=== PATIENT | female | born 1955 | race Caucasian/White ===

== ENCOUNTER 2017-04-08 05:23 | Emergency (ER) | payer OTHER ==
[2017-04-08 05:53] VITALS: BP 145/90; PULSE 81; TEMP 98.4
--- NOTE | 2017-04-08 06:49 | PDOC ---
History of Present Illness <Lizzy Holder - Last Filed: 04/08/17 06:41> - General History Source: Patient Exam Limitations: No Limitations - History of Present Illness Initial Comments: 04/08/17 07:07 Patient is a 62 year old female who presents to the ED with complaints of bilateral rib pain that began 3 days ago. Patient reports experiencing sudden onset of bilateral rib pain while at home that has shown no signs of subsiding. She reports experiencing increased nasal congestion as well as SOB for 3 days. Patient states she has recently been unable to sleep comfortably secondary to nasal congestion. Patient reports being afraid to take nasal medicine, stating that it makes her feel worse. She reports getting her flu shot 2 months ago. Denies chest pain, coughing. Denies runny nose, headache. Denies fevers, chills. Denies contact with significant past medical history. Remainder of ROS reviewed and unremarkable. PMHx: HTN Allergies: Shellfish Social history: No smoking. No alcohol. No illicit drugs. Surgical history: None PMD: Not on staff. <Kyle Long - Last Filed: 04/08/17 07:08> - General Chief Complaint: Cold Symptoms Stated Complaint: COUGHING,CONGESTION Time Seen by Provider: 04/08/17 06:09 Past History - Suicide/Smoking/Psychosocial Hx Smoking History: Never smoked Have you smoked in the past 12 months: No Information on smoking cessation initiated: No Hx Alcohol Use: No Drug/Substance Use Hx: No <Lizzy Holder - Last Filed: 04/08/17 06:41> <Kyle Long - Last Filed: 04/08/17 07:08> - Past Medical History Allergies/Adverse Reactions: Allergies Allergy/AdvReac Type Severity Reaction Status Date / Time shellfish derived Allergy Verified 04/08/17 05:49 Home Medications: Ambulatory Orders Amlodipine Besylate/Benazepril [Lotrel 5-10 mg Capsule] 1 each PO DAILY Desloratadine 5 mg PO DAILY 04/08/17 Fluticasone Prop 0.05% Nasal [Flonase -] 1 - 2 spray NS BID #1 spray.pump Oxymetazoline 0.05% Nasal Soln [Afrin -] 2 spray NS BID 3 Days #1 spraybtl 04/08 Pseudoephedrine HCl [Sudafed 12 Hour] 120 mg PO BID 5 Days #10 tablet.er Sodium Chloride [Saline Nasal [place]] 30 ml NS 5XD #1 spray 04/08/17 Zolpidem Tartrate [Ambien] 10 mg PO HS PRN 04/08/17 Review of Systems - Review of Systems Able to Perform ROS?: Yes Comments:: 04/08/17 07:07 See HPI. All other systems reviewed and unremarkable <Kyle Long - Last Filed: 04/08/17 07:08> *Physical Exam - Vital Signs Last Vital Signs Temp Pulse Resp BP Pulse Ox 98.4 F 81 18 145/90 96 04/08/17 05:47 04/08/17 05:47 04/08/17 05:47 04/08/17 05:47 04/08/17 05:47 - Physical Exam Comments: 04/08/17 06:41 NAD + congestion + cervical LAD no OP edema/erythema full voice CTABL RRR soft NTND very anxious.l <Lizzy Holder - Last Filed: 04/08/17 06:41> - Vital Signs Last Vital Signs Temp Pulse Resp BP Pulse Ox 98.4 F 81 18 145/90 96 04/08/17 05:47 04/08/17 05:47 04/08/17 05:47 04/08/17 05:47 04/08/17 05:47 <Kyle Long - Last Filed: 04/08/17 07:08> Medical Decision Making - Medical Decision Making 04/08/17 06:42 62yoF w/ sinus congestion x 3d, states interfering with sleep. Minimal therapy - - tried mucinex nasal spray without relief. - afrin, nasonex, nasal saline and sudafed - DC <Lizzy Holder - Last Filed: 04/08/17 06:41> *DC/Admit/Observation/Transfer - Discharge Dispostion Admit: No <Lizzy Holder - Last Filed: 04/08/17 06:41> - Attestations Scribe Attestion: 04/08/17 07:08 Documentation prepared by Kyle Long, acting as medical office asst for Lizzy Holder MD, /DO. <MercedesKyle gomez - Last Filed: 04/08/17 07:08> Diagnosis at time of Disposition: Sinus congestion, Upper respiratory infection - Discharge Dispostion Disposition: HOME Condition at time of disposition: Good - Prescriptions Prescriptions: Fluticasone Prop 0.05% Nasal [Flonase -] 1 - 2 spray NS BID #1 spray.pump Oxymetazoline 0.05% Nasal Soln [Afrin -] 2 spray NS BID 3 Days #1 spraybtl Pseudoephedrine HCl [Sudafed 12 Hour] 120 mg PO BID 5 Days #10 tablet.er Sodium Chloride [Saline Nasal [place]] 30 ml NS 5XD #1 spray - Referrals Referrals: ON STAFF,NOT [Primary Care Provider] - - Patient Instructions Additional Instructions: medications have been sent to your pharmacy. Take as directed. You should start to feel better in a few days but will likely not feel complete better for 1-2 weeks. Please see your primary doctor this week to discuss your symptoms. Take tylenol or advil for pain Take tylenol for fever over 100.4F return to ER for severe increasing pain with change in vision fever over 102 severe difficulty breathing in your lungs. - Post Discharge Activity
[2017-04-08] MEDS ORDERED: PSEUDOEPHEDRINE HCL 60 MG TABLET PO SCH (07:00)
[2017-04-08] MEDS ORDERED: PSEUDOEPHEDRINE HCL 60 MG TABLET ONE (07:04)
== END 2017-04-08 07:15 | disposition home or self-care (01) ==
LOC: JER 05:23
DX: J06.9 Acute upper respiratory infection, unspecified (principal)
CPT/HCPCS: 99281-25

== ENCOUNTER 2017-08-09 19:08 | Emergency (ER) | payer OTHER ==
[2017-08-09 19:31] VITALS: BP 173/96; PULSE 96; TEMP 98.2; BMI 19.0
[2017-08-09] MEDS ORDERED: EPINEPHrine 1:1,000 0.3 MG/0.3 ML SYR IM ONE (22:38)
[2017-08-09] MEDS ORDERED: FAMOTIDINE 20 MG/50 ML IVPB 20 MG/50 ML MG IVPB ONE ×2 (22:38→23:10)
[2017-08-09] MEDS ORDERED: methylPREDNISolone NA SUCC 125 MG/2 ML VIAL IVPUSH ONE (22:38)
--- NOTE | 2017-08-09 22:40 | PDOC ---
Attending Attestation - Resident Resident Name: KiloBasilioTrevor - ED Attending Attestation I have performed the following: I have examined & evaluated the patient, The case was reviewed & discussed with the resident, I agree w/resident's findings & plan, Exceptions are as noted - HPI HPI: 08/09/17 23:02 Ms Herrera is a 62 yo F with a h/o HTN She presents to the ER with a complaint of urticarial rash involving the extremities Symptoms have been present for the past 3 days she first noted it on the left ear, followed by the right ear Last night she noted a rash on the lower extremities She has been taking anti histamine, first dose she threw up this morning, she has noted minimal improvement in her symptoms She came in today because she felt throat tightness, globus sensation in the throat No wheezing Pt has an allergy to Shellfish and contrast No other food or medication allergies - Physicial Exam PE: 08/09/17 23:09 GENERAL: The patient is in no acute distress. EYES: PERRLA, EOMI, sclera anicteric, conjunctiva clear. ENT: Tongue not edematous, uvula midline, not edematous NECK: Normal range of motion, supple without lymphadenopathy, JVD, or masses. LUNGS: Breath sounds equal, clear to auscultation bilaterally. No wheezes, and no crackles. HEART:Regular rate and rhythm, normal S1 and S2 without murmur, rub or gallop. ABDOMEN: Soft, nontender, normoactive bowel sounds. No guarding, no rebound. No masses palpable. EXTREMITIES: Normal range of motion, no edema NEUROLOGICAL: Cranial nerves II through XII grossly intact. Normal speech. No focal neurological deficits. MUSCULOSKELETAL: Back non-tender to palpation, no CVA tenderness SKIN: Diffuse urticarial lesions noted - Medical Decision Making 08/10/17 00:04 62 yo F presenting to the ER with urticarial rash Unclear cause of rash Will give Solumedrol Will monitor for improvement in throat symptoms Pt monitored for 6 hours No progression or worsening of symptoms Pt asked to follow up with ENT and PMD Clinical Impression: urticarial rash, initial presentation Allergic reaction to unknown substance, initial presentation
--- NOTE | 2017-08-09 23:00 | PDOC ---
History of Present Illness - History of Present Illness Initial Comments: 08/09/17 22:48 62 yo F with no significant pmh who p/w urticarial rash, and globus throat sensation. Pt. reports 3 days of diffuse widespread urticarial, pruitic rash over trunk, BL LE and BL UE, sparing the palms and soles, but involving BL lateral face. Reports acute onset of globus throat sensation, hoarseness, dry non productive cough, and odynophagia. 1 episode of non bilious 50 mg diphehydramine, and Desloratidine with little to no improvement. Endorses new body soap use obtained from [facility]. Denies new topical emollients, shampoo, detergent, clothing, bedding, recent travel, outdoor exposure, hiking, camping. Reports similar symptom of urticarial reaction 2 months ago. Denies F/C, orthopnea, palpitations, tongue swelling, N/V, CP, SOB, abdominal pain, diarrhea, constipation, urinary complaints, weakness, lightheadedness, sensory changes. PMHx: as noted above ROS: as noted above. Denies h/o asthma, ICU stay, intubations. SHx:Denies Etoh, tobacco, IVDA Allergies: Shrimp <Trevor Boateng - Last Filed: 08/10/17 00:28> <Hosea Gilman - Last Filed: 08/10/17 04:18> - General Chief Complaint: Rash Stated Complaint: RASH Time Seen by Provider: 08/09/17 22:20 Past History - Past Medical History COPD: No - Suicide/Smoking/Psychosocial Hx Smoking History: Never smoked Have you smoked in the past 12 months: No Hx Alcohol Use: No Drug/Substance Use Hx: No <Trevor Boateng - Last Filed: 08/10/17 00:28> <Hosea Gilman - Last Filed: 08/10/17 04:18> - Past Medical History Allergies/Adverse Reactions: Allergies Allergy/AdvReac Type Severity Reaction Status Date / Time shellfish derived Allergy Verified 08/09/17 19:32 Home Medications: Ambulatory Orders Amlodipine Besylate/Benazepril [Lotrel 5-10 mg Capsule] 1 each PO DAILY Desloratadine 5 mg PO DAILY 04/08/17 Fluticasone Prop 0.05% Nasal [Flonase -] 1 - 2 spray NS BID #1 spray.pump Oxymetazoline 0.05% Nasal Soln [Afrin -] 2 spray NS BID 3 Days #1 spraybtl 04/08 Pseudoephedrine HCl [Sudafed 12 Hour] 120 mg PO BID 5 Days #10 tablet.er Sodium Chloride [Saline Nasal [place]] 30 ml NS 5XD #1 spray 04/08/17 Zolpidem Tartrate [Ambien] 10 mg PO HS PRN 04/08/17 Prednisone [Prednisone 50 MG TABLETS] 50 mg PO DAILY 5 Days #5 tablet MDD 1 tab 08/10/17 Review of Systems - Review of Systems Comments:: 08/09/17 23:03 GENERAL/CONSTITUTIONAL: No fever or chills. No weakness. HEAD, EYES, EARS, NOSE AND THROAT:+ throat discomfort. No change in vision. No ear pain or discharge. CARDIOVASCULAR: No chest pain or shortness of breath RESPIRATORY: No cough, wheezing, or hemoptysis. GASTROINTESTINAL: No nausea, vomiting, diarrhea or constipation. GENITOURINARY: No dysuria, frequency, or change in urination. MUSCULOSKELETAL: No joint or muscle swelling or pain. No neck or back pain. SKIN: + rash NEUROLOGIC: No headache, vertigo, loss of consciousness, or change in strength/ sensation. ENDOCRINE: No increased thirst. No abnormal weight change HEMATOLOGIC/LYMPHATIC: No anemia, easy bleeding, or history of blood clots. ALLERGIC/IMMUNOLOGIC: + hives or skin allergy. <Trevor Boateng - Last Filed: 08/10/17 00:28> *Physical Exam - Vital Signs Last Vital Signs Temp Pulse Resp BP Pulse Ox 98.2 F 96 H 18 173/96 99 08/09/17 19:28 08/09/17 19:28 08/09/17 19:28 08/09/17 19:28 08/09/17 19:28 - Physical Exam Comments: 08/09/17 23:04 GENERAL: Awake, alert, and fully oriented, in no acute distress HEAD: No signs of trauma, normocephalic, atraumatic EYES: PERRLA, EOMI, sclera anicteric, conjunctiva clear ENT: Hearing grossly normal, nares patent, oropharynx clear without exudates. Moist mucosa NECK: Normal ROM, supple, no lymphadenopathy, JVD, or masses LUNGS: No distress, speaks full sentences, clear to auscultation bilaterally HEART: Regular rate and rhythm, normal S1 and S2, no murmurs, rubs or gallops, peripheral pulses normal and equal bilaterally. ABDOMEN: Soft, nontender, normoactive bowel sounds. No guarding, no rebound. No masses EXTREMITIES : Normal inspection, Normal range of motion, no edema. No clubbing or cyanosis. SKIN: + Widespread urticarial, erythematous, blanching, skin change on BL LE/UE , abdomen and minimal facial involvement. Absent eye, mucosal, involvement. <Trevor Boateng - Last Filed: 08/10/17 00:28> - Vital Signs Last Vital Signs Temp Pulse Resp BP Pulse Ox 98.2 F 96 H 18 173/96 99 08/09/17 19:28 08/09/17 19:28 08/09/17 19:28 08/09/17 19:28 08/09/17 19:28 <Hosea Gilman - Last Filed: 08/10/17 04:18> ED Treatment Course - LABORATORY CBC & Chemistry Diagram: 08/09/17 23:59 08/09/17 23:59 <Trevor Boateng - Last Filed: 08/10/17 00:28> - LABORATORY CBC & Chemistry Diagram: 08/09/17 23:59 08/09/17 23:59 - ADDITIONAL ORDERS Additional order review: Laboratory Results 08/09/17 08/09/17 08/09/17 23:59 23:59 23:59 PT with INR 11.20 INR 0.99 Sodium 140 Potassium 3.7 Chloride 105 Carbon Dioxide 22 Anion Gap 13 BUN 18 Creatinine 0.9 Creat Clearance w eGFR > 60 Random Glucose 108 H Calcium 8.5 Total Bilirubin 0.4 AST 27 ALT 32 Alkaline Phosphatase 87 Creatine Kinase 148 Cancelled Troponin I < 0.02 Cancelled Total Protein 7.6 Albumin 3.8 08/09/17 23:59 RBC 4.01 MCV 95.4 MCHC 33.6 RDW 13.0 MPV 7.5 Neutrophils % 57.3 Lymphocytes % 31.5 Monocytes % 9.9 Eosinophils % 1.1 Basophils % 0.2 - Medications Given in the ED: ED Medications Discontinued Medications Generic Name Dose Route Start Last Admin Trade Name Freq PRN Reason Stop Dose Admin Diphenhydramine HCl 25 mg 08/09/17 22:38 08/09/17 23:44 Benadryl Injection - IVPUSH 08/09/17 22:39 25 mg ONCE ONE Administration Epinephrine 0.3 mg 08/09/17 22:38 08/09/17 23:44 Epipen 0.3mg - IM 08/09/17 22:39 Not Given ONCE ONE Famotidine/Sodium Chloride 20 mg in 50 mls @ 100 mls/hr 08/09/17 22:38 23:44 Pepcid 20 Mg Premixed Ivpb - IVPB 08/09/17 23:07 100 mls/hr ONCE ONE Administration Methylprednisolone Sodium Succinate 125 mg 08/09/17 22:38 08/09/17 23:45 Solu-Medrol - IVPUSH 08/09/17 22:39 125 mg ONCE ONE Administration <Hosea Gilman - Last Filed: 08/10/17 04:18> Medical Decision Making - Medical Decision Making 08/09/17 23:12 62 yo F with no significant pmh who p/w urticarial rash, and globus throat sensation. AF, BP 173/76, vitals otherwise wnl, A&Ox3. No evidence of stridor, tongue, mucosal, soft palate edema, uvular deviation, airway edema, hypotension or other signs of anaphylaxis. Probable acute atopic dermatitis, or acute hypersensitivity reaction. Patient stable with no evidence or respiratory compromise. Will treat and reassess. Plan to observe for 6 hours ED Course: Diphenhydramine 50 mg, Solumedrol 125 mg, Famotidine 20 mg CBC, CMP, Cardiac Pr, PT/INR 08/10/17 00:28 Prednisone sent to pharmacy CBC- Unremarkable Patient vitals stable and with absent resp distress. Signed out to night team. <Trevor Boateng - Last Filed: 08/10/17 00:28> *DC/Admit/Observation/Transfer - Attestations Physician Attestion: 08/09/17 23:27 I attest to the information provided in this note. <Trevor Boateng - Last Filed: 08/10/17 00:28> - Discharge Dispostion Decision to Admit order: No <Hosea Gilman - Last Filed: 08/10/17 04:18> Diagnosis at time of Disposition: Allergic reaction, urticaria - Discharge Dispostion Disposition: HOME Condition at time of disposition: Stable - Prescriptions Prescriptions: Prednisone [Prednisone 50 MG TABLETS] 50 mg PO DAILY 5 Days #5 tablet MDD 1 tab - Patient Instructions Printed Discharge Instructions: DI for Hives Additional Instructions: Please return to the emergency department with any new or worsening symptoms or concerns. Please follow up with your primary care physician within 72 hours. Please follow up with [facility] within one week. Take Prednisone daily.
[2017-08-09] MEDS ORDERED: methylPREDNISolone NA SUCC 125 MG/2 ML VIAL ONE (23:10)
[2017-08-10 00:09] LABS: BASO % 0.2 % (0-2.0); EOS % 1.1 % (0-4.5); HEMATOCRIT 38.2 % (32.4-45.2); HEMOGLOBIN 12.9 GM/dL (10.7-15.3); LYMPH % 31.5 % (8-40); MCH 32.1 pg (25.7-33.7); MCHC 33.6 g/dl (32.0-36.0); MEAN CELL VOLUME 95.4 fl (80-96); MEAN PLT VOLUME 7.5 fl (7.5-11.1); MONO % 9.9 % (3.8-10.2); NEUT % 57.3 % (42.8-82.8); PLATELET COUNT 235 K/MM3 (134-434); RBC 4.01 M/mm3 (3.60-5.2); WHITE BLOOD COUNT 5.6 K/mm3 (4.0-10.0)
[2017-08-10 00:30] LABS: INR 0.99 (0.82-1.09); PROTHROMBIN TIME (PATIENT) 11.2 SEC (9.7-13.0)
[2017-08-10 00:43] LABS: ALBUMIN 3.8 g/dl (3.4-5.0); ANION GAP 13 (8-16); BILIRUBIN,TOTAL 0.4 mg/dL (0.2-1.0); BLOOD UREA NITROGEN 18 mg/dL (7-18); CALCIUM 8.5 mg/dL (8.5-10.1); CHLORIDE 105 mmol/L (98-107); CO2 22 mmol/L (21-32); CREATININE 0.9 mg/dL (0.55-1.02); GLUCOSE,RANDOM 108 mg/dL (74-106); POTASSIUM 3.7 mmol/L (3.5-5.1); SGOT/AST 27 U/L (15-37); SGPT/ALT 32 U/L (12-78); SODIUM 140 mmol/L (136-145); TOT PROT 7.6 g/dl (6.4-8.2)
[2017-08-10 00:45] LABS: ALK PHOS 87 U/L (45-117)
== END 2017-08-10 04:43 | disposition home or self-care (01) ==
LOC: JER 19:08
PROC: 3E033GC Introduction of Other Therapeutic Substance into Peripheral Vein, Percutaneous Approach (ICD-10-PCS; principal; 2017-08-09)
PROC: 3E033GC Introduction of Other Therapeutic Substance into Peripheral Vein, Percutaneous Approach (ICD-10-PCS; 2017-08-09)
PROC: 3E0333Z Introduction of Anti-inflammatory into Peripheral Vein, Percutaneous Approach (ICD-10-PCS; 2017-08-09)
DX: L50.0 Allergic urticaria (principal)
CPT/HCPCS: 36415; 80053; 82550; 84484; 85025; 85610; 96365; 96375; 99282-25

== ENCOUNTER 2018-08-13 00:56 | Emergency (ER) | payer OTHER | END 2018-08-13 03:30 | disposition home or self-care (01) | LOC: JER 00:56 ==